=== PATIENT | male | born 1985 | race Caucasian/White ===

== ENCOUNTER 2018-04-20 00:13 | Emergency (ER) | payer OTHER ==
[~2018-04-20] VITALS: Ht 185.4 cm; Wt 120.2 kg
[~2018-04-20 00:13] MED LIST: ALBUTEROL INHAL17 GM IH; NORCO 5-325 TA1 EACH PO; VENTOLIN HFA INH8 GM; ZPAK PO
[2018-04-20] MEDS ORDERED: KEFLEX500 M1 (00:20)
[2018-04-20 00:46] LABS: ABSOLUTE BASOPHILS 0.1 thou/uL (0.0-0.2); ABSOLUTE EOSINOPHILS 0.2 thou/uL (0.0-0.7); ABSOLUTE LYMPHOCYTES 2.4 thou/uL (0.8-5.3); ABSOLUTE MONOCYTES 0.9 thou/uL (0.0-1.2); ABSOLUTE NEUTROPHILS 6.1 thou/uL (1.6-8.1); BASOPHILS 0.7 %; EOSINOPHILS 2.1 %; HEMATOCRIT 46.7 % (42.0-52.0); HEMOGLOBIN 15.7 gm/dL (14.0-18.0); MCH 30.9 pg (26.0-34.0); MCHC 33.5 g/dL (28.0-37.0); MCV 92.2 fL (80.0-100.0); MONOCYTES 9.5 %; NUCLEATED RBCS 0 /100WBC; PLATELET COUNT* 215 thou/uL (150-400); POLYS 62.7 %; RBC 5.07 mil/uL (4.50-6.00); RDW-CV 13.3 % (10.5-14.5); WBC 9.7 thou/uL (4.0-11.0)
[2018-04-20 00:52] LABS: URINE BILIRUBIN NEGATIVE (Negative); URINE BLOOD NEGATIVE (Negative); URINE CLARITY CLEAR; URINE COLOR YELLOW; URINE GLUCOSE-RANDOM NEGATIVE (Negative); URINE KETONES NEGATIVE (Negative); URINE LEUKOCYTES-REFLEX NEGATIVE (Negative); URINE NITRITE-REFLEX NEGATIVE (Negative); URINE PROTEIN NEGATIVE (Negative); URINE SPECIFIC GRAVITY 1.025 (1.005-1.030); URINE UROBILINOGEN 0.2 E.U./dl (0.2-1.0)
[2018-04-20 01:00] LABS: CREATININE 0.9 mg/dL (0.6-1.3)
[2018-04-20 02:08] VITALS: BP 122/71
== END 2018-04-20 02:12 | disposition home or self-care (01) ==
LOC: M.ERS 00:13
PROVIDERS: Personal Emergency Response Attendant
DX: M54.5 Low back pain (principal); R30.0 Dysuria; J45.909 Unspecified asthma, uncomplicated; F31.9 Bipolar disorder, unspecified; F90.9 Attention-deficit hyperactivity disorder, unspecified type

== ENCOUNTER 2020-10-30 21:03 | Emergency (ER) | payer OTHER ==
[~2020-10-30] VITALS: Ht 185.4 cm; Wt 131.5 kg
[~2020-10-30 21:03] MED LIST changes: +KEFLEX500 M1
[2020-10-30] MEDS ORDERED: PREDNISONE 20 M20 MG PO (21:26)
[2020-10-30] MEDS ORDERED: ZPAK PO (21:26)
[2020-10-30 21:53] VITALS: BP 169/97
[2020-10-30 21:55] LABS: INFLUENZA A ANTIGEN Negative (Negative); INFLUENZA B ANTIGEN Negative (Negative)
== END 2020-10-30 21:54 | disposition home or self-care (01) ==
LOC: M.ERS 21:03
PROVIDERS: Nurse Practitioner
DX: J45.909 Unspecified asthma, uncomplicated (principal); H66.91 Otitis media, unspecified, right ear; J06.9 Acute upper respiratory infection, unspecified; H92.02 Otalgia, left ear; F90.9 Attention-deficit hyperactivity disorder, unspecified type; F31.9 Bipolar disorder, unspecified; Z20.822 Contact with and (suspected) exposure to COVID-19; Z88.0 Allergy status to penicillin; Z88.2 Allergy status to sulfonamides